=== PATIENT | male | born 1965 | race Caucasian/White ===

== ENCOUNTER 2023-07-17 09:25 | Outpatient (CLI) | payer OTHER ==
[~2023-07-17 09:25] MED LIST: ASPIR 8181 MG; FLUTICASONE PRO60 ML; NORVASC10 MG; PRILOSEC40 MG PO; ZOCOR40 MG
== END 2023-07-17 09:37 | disposition home or self-care (01) ==
LOC: RX STUDY 09:25
PROVIDERS: ATTEND Internal Medicine
DX: R13.12 Dysphagia, oropharyngeal phase (principal); K44.9 Diaphragmatic hernia without obstruction or gangrene